=== PATIENT | female | born 1960 | race Caucasian/White ===

== ENCOUNTER 2016-10-31 07:14 | Day surgery (SDC) | payer OTHER ==
--- NOTE | 2016-10-30 14:45 | HP ---
TARA CUNNINGHAM DATE OF SCHEDULED SURGERY: October 31, 2016 PREOPERATIVE DIAGNOSES: 1. Ovarian cyst. 2. Symptomatic rectocele. PROCEDURE PLANNED: 1. Laparoscopy and drainage of the cyst. 2. Rectocele repair. HISTORY: The patient is a 56-year-old 0 woman with a last menstrual period at age 18 when she had a total abdominal hysterectomy. Over the past few months she has been having difficulty getting stool out of her rectum and needs to put her hand in the vagina and push the back wall down to have a bowel movement. She states the stool is soft, no constipation. She denies any pain on a regular basis. She has also had a history of a cyst on the right ovary in the past. We did a followup ultrasound which showed that she has a 3.8 cm simple cyst on the right ovary. Left side is negative. Otherwise normal ultrasound. Patient states that the rectocele is giving her a problem and would like something done about it. PAST MEDICAL HISTORY: 1. History of hyperlipidemia. 2. As a child she had a tetrology of Fallot. 3. History of asthma. 4. Chronic pain. PAST SURGICAL HISTORY: 1. Surgery repair as a child of the tetrology of Fallot. 2. History of hysterectomy at age 18. ALLERGIES: None. MEDICATIONS: 1. Singulair 10 mg at bedtime. 2. Omeprazole. 3. Cetirizine. 4. Gabapentin 300 mg at bedtime. 5. Melatonin at bedtime. 6. Pseudoephedrine as needed. 7. Advil as needed. ALLERGIES: 1. ERYTHROMYCIN CAUSING A BODY RASH. 2. AMOXICILLIN CAUSING A BODY RASH AND RESPIRATORY DIFFICULTY. 3. KEFLEX CAUSING HIVES. 4. CIPRO CAUSING HIVES. 5. HYDROCODONE CAUSING VOMITING. 6. LATEX CAUSING RED BLISTERS. 7. STERISTRIPS CAUSING WELTS. FAMILY HISTORY: Noncontributory. REVIEW OF SYSTEMS: Patient denies fever, chills, constipation, diarrhea, dysuria, hematuria. PHYSICAL EXAMINATION: GENERAL: She is a healthy-appearing woman. VITAL SIGNS: Stable, afebrile. HEENT: Normal. LUNGS: Clear. HEART: Normal S1 and S2. ABDOMEN: Soft, nontender, with no guarding or rebound. PELVIC: External genitalia are normal. Vagina shows a rectocele to the introitus. Uterus and cervix are surgically absent. There are no adnexal masses though she is slightly tender on the right side. IMPRESSION: The impression is a patient with a persistent right ovarian cyst and a symptomatic rectocele. PLAN: Plan is to do a laparoscopy to remove the cyst and a rectocele repair.
[~2016-10-31 07:14] MED LIST: IV START KIT ONE; LACTATED RINGERS 1,000 ML ONE; SULFANILAMIDE 15% CREAM 20 APPLIC/120 G TUBE ONE
[2016-10-31] MEDS ORDERED: CLINDAMYCIN 600 MG PREMIX 50 ML IV ONE (07:27)
[2016-10-31] MEDS ORDERED: CLINDAMYCIN 600 MG PREMIX 50 ML IV PRN (07:30)
[2016-10-31] MEDS ORDERED: GENTAMICIN SULFATE 320 MG in SODIUM CHLORIDE 0.9% 100 ML IV PRN (07:30)
[2016-10-31] MEDS ORDERED: DEXAMETHASONE SOD PHOS 4 MG/1 ML VIAL ONE (07:48)
[2016-10-31] MEDS ORDERED: PROPOFOL 20 ML IV ONE ×2 (07:48→09:35)
[2016-10-31] MEDS ORDERED: ONDANSETRON 4 MG/2ML 2 ML VIAL ONE (07:48)
[2016-10-31] MEDS ORDERED: FENTANYL 5 ML ONE (07:48)
[2016-10-31] MEDS ORDERED: SUCCINYLCHOLINE CHL 20 MG/ML DOSE ONE (07:48)
[2016-10-31] MEDS ORDERED: MIDAZOLAM HCL 5 MG/5 ML VIAL ONE (07:48)
[2016-10-31] MEDS ORDERED: KETOROLAC TROMETHAMINE 30 MG/ML 1 ML VIAL ONE (07:48)
[2016-10-31] MEDS ORDERED: LIDOCAINE 2% (MULTI DOSE) 10 ML VIAL ONE (07:48)
[2016-10-31] MEDS ORDERED: ROCURONIUM BROMIDE 10 MG/ML DOSE IV ONE (07:48)
[2016-10-31] MEDS ORDERED: FAMOTIDINE 10 MG/ML 2ML VIAL ONE (08:00)
[2016-10-31] MEDS ORDERED: DIPHENHYDRAMINE HCL 50 MG/1 ML VIAL ONE (08:00)
[2016-10-31] MEDS ORDERED: SCOPOLAMINE 1.5 MG/72 HR 1 EACH PATCH TD ONE (08:00)
[2016-10-31] MEDS ORDERED: HYDROMORPHONE HCL 1 MG/ML SYRINGE IV PRN ×2 (08:50→10:49)
[2016-10-31] MEDS ORDERED: PROMETHAZINE HCL 25 MG/ML VIAL IM PRN (08:50)
[2016-10-31] MEDS ORDERED: ONDANSETRON 4 MG/2ML 2 ML VIAL IV PRN (08:50)
[2016-10-31] MEDS ORDERED: LACTATED RINGERS 1,000 ML IV SCH (09:00)
[2016-10-31] MEDS ORDERED: ATROPINE SULFATE 1 MG/1 ML VIAL ONE (09:00)
[2016-10-31] MEDS ORDERED: EPHEDRINE SULFATE UD SYR 25 MG 25 MG/5 ML SYRINGE IV ONE (09:25)
--- NOTE | 2016-10-31 10:19 | OP ---
Denisa Trejo DATE: 10/31/2016 PREOPERATIVE DIAGNOSES: 1. Symptomatic rectocele. 2. Symptomatic right ovarian cyst. POSTOPERATIVE DIAGNOSES: 1. Symptomatic rectocele. 2. Symptomatic right ovarian cyst. OPERATION PERFORMED: 1. Laparoscopy with drainage of cyst. 2. Rectocele repair. SURGEON: Yung Conroy M.D. AIR CARGO SPECIALIST: Gabrielle Mayorga PROCEDURE: The patient was taken to the operating room and general anesthesia was administered. She was placed in the dorsolithotomy position and prepped and draped in the usual sterile fashion. A sponge stick was placed into the vagina. Surgeon changed gloves. Subumbilical skin incision with a scalpel. We then attempted to put a Visiport trocar in. The shorter one was too short. We changed to the larger one. We still were not getting through although, I was not feeling any mesh. As we were pushing down the patient became asystolic. We immediately stopped. She was given Atropine and her heart rate returned and her blood pressure remained stable throughout the incident. After waiting we then decided to put a Varess needle in and this was done and a pneumoperitoneum was created without incident. A 5 mm Visiport port was then put in. Exam showed no bleeding. Belly was normal in appearance. A second 5 mm port was put in suprapubically. Using a probe we were able to see the right ovary, I did not see the left ovary, but the right ovary had a 3 cm fluid filled cyst on it, this was brought up and was needle aspirated and the fluid was sent for cytology. Hemostasis was good. Again, I looked throughout the entire abdomen and there was no bleeding and no abnormalities. She did have a number of omental adhesions particularly on the left side which were too thick to take down and have not been bothering her. At that point, we stopped and closed the incisions with interrupted sutures of 3-0 Plain. Attention was then turned to the rectocele. Rectal exam showed that she had a rectocele up about 3 to 4 cm from the introitus. The peritoneal body was incised with scissors and then the posterior wall of the vagina was undermined with scissors and opened in the midline. Using sharp and blunt dissection the rectal tissue and perirectal fascia were dissected away from the vaginal mucosa. Two interrupted sutures of 0 Vicryl were placed to bring the perirectal fascia back together. This reduced and eliminated the rectocele. The excess vaginal mucosa was removed with scissors and then the posterior wall was closed with a running locking suture of 2-0 Vicryl. Hemostasis was good. Rectal exam showed that the cystocele had been reduced. Leigh catheter was inserted with clear urine return and a vaginal pack was inserted. Patient tolerated the procedure well and was taken to the recovery room in stable condition. All sponge, instrument, and needle counts were correct. Estimated blood loss 30 mL. JOB: [id number]
[2016-10-31] MEDS ORDERED: FENTANYL 100 MCG/2 ML VIAL ONE (10:35)
[2016-10-31] MEDS: FENTANYL 100 MCG/2 ML VIAL IV PRN ×2 (10:37→10:51)
[2016-10-31] MEDS ORDERED: MAGNESIUM HYDROXIDE/AL HYDROX 30 ML UDCUP PO PRN (10:49)
[2016-10-31] MEDS ORDERED: MENTHOL/CETYLPYRD 1 EACH LOZENGE PO PRN (10:49)
[2016-10-31] MEDS ORDERED: ACETAMINOPHEN 325 MG TABLET PO PRN (10:49)
[2016-10-31] MEDS ORDERED: ONDANSETRON 4 MG ODT TAB PO PRN (10:49)
[2016-10-31] MEDS ORDERED: MAG HYDROX/AL HYDROX/SIMETH 30 ML UDCUP PO PRN (10:49)
[2016-10-31] MEDS ORDERED: BLISTEX LIPSTICK 1 EACH TP PRN (10:49)
[2016-10-31 11:20] VITALS: BMI 28.8
[2016-10-31] MEDS ORDERED: PUMP TUBING ONE (11:51)
[2016-10-31] MEDS: D5LR 1,000 ML IV SCH ×2 (11:55→20:15)
[2016-10-31] MEDS: DOCUSATE SODIUM 100 MG CAPSULE PO SCH (20:15)
[2016-10-31] MEDS: HYDROMORPHONE HCL 2 MG TABLET PO PRN (20:30)
[2016-10-31] MEDS ORDERED: IV START KIT ONE (22:19)
[2016-10-31] MEDS ORDERED: SODIUM CHLORIDE 0.9% FLUSH 10 ML ONE (22:19)
[2016-11-01] MEDS: HYDROMORPHONE HCL 2 MG TABLET PO PRN ×3 (01:41→09:32)
[2016-11-01] MEDS: D5LR 1,000 ML IV SCH ×2 (05:20→10:50)
[2016-11-01 06:41] LABS: HEMATOCRIT 40.2 % (37.0-47.0); HEMOGLOBIN 13.4 gm/l (12.0-16.0); MEAN CELL VOLUME 87.2 fl (81.0-99.0); MEAN CORPUSCULAR HEMOGLOBIN 29.1 pg (27.0-31.0); MEAN CORPUSCULAR HGB CONC 33.3 g/dl (33.0-37.0); RED CELL DISTRIBUTION WIDTH 12.3 % (11.5-14.5)
[2016-11-01 08:08] VITALS: BP 92/66
[2016-11-01] MEDS: DOCUSATE SODIUM 100 MG CAPSULE PO SCH (08:20)
--- NOTE | 2016-11-01 11:22 | PDOC43 ---
- Subjective Subjective: Reports Pain Tolerable, Reports Tolerating PO Regular - Objective Vital Signs Temperature 99.2 F 11/01/16 08:06 Pulse Rate 75 11/01/16 08:06 Respiratory Rate 17 11/01/16 08:06 Blood Pressure 92/66 11/01/16 08:06 O2 Saturation by Pulse Oximetry 99 11/01/16 08:06 Oxygen Delivery Method Room Air Oxygen Flow Rate 0 Laboratory 11/01/16 06:00 Active Medication Orders Category Date Time Status Acetaminophen [Tylenol] Med 10/31/16 10:49 Active 325 - 650 mg PO Q4H PRN D5lr 1,000 ml Med 10/31/16 10:49 Active IV 125 mls/hr Docusate Sodium [Colace] Med 10/31/16 21:00 Active 100 mg PO BID Hydromorphone HCl [Dilaudid] Med 10/31/16 10:49 Active 1 - 2 mg IV Q2H PRN Hydromorphone [Dilaudid] Med 10/31/16 09:50 Active 2 mg PO Q4H PRN Lip [place] [Blistex] Med 10/31/16 10:49 Active 1 each TP PRN PRN Magnesium Hydroxide/Al Hydrox [Maalox] Med 10/31/16 10:49 Active 30 ml PO Q4H PRN Magnesium/Al Hydrox/Simeth [Maalox Plus] Med 10/31/16 10:49 Active 30 ml PO Q4H PRN Menthol/Cetylpyridinium [Cepacol] Med 10/31/16 10:49 Active 1 each PO PRN PRN Ondansetron ODT [Zofran Odt] Med 10/31/16 10:49 Active 4 - 8 mg PO Q8H PRN Sodium Chloride 0.9% Flush [Normal Saline 10ml Flush] Med 10/31/16 10:49 Active 10 - 50 ml IV PRN PRN Intake and Output 10/30/16 10/31/16 11/01/16 23:59 23:59 23:59 Intake Total 3097 2232 Output Total 6175 6534 Balance 1042 -1068 General: Afebrile Abdomen: Soft Genitourinary: Normal Female Genitalia Psych/Mental Status: Normal Affect (pack removed, dry) - Disposition: Disposition: Anticipate Home Today
--- NOTE | 2016-11-02 10:12 | SURGPATH ---
[facility] [address] [place] [id number] Patient Name: TARA CUNNINGHAM MR#: [id number] : 1960 Gender: F Specimen #: [id number] Collected: 10/31/2016 Received: 11/01/2016 Reported: 11/02/2016 Submitting Phys: ELICIA ROBERTS Copy To Phys: STEF MCKNIGHT Clinical History / Pre-Operative Diagnosis: Specimen Source / Surgical Procedure Performed: Right Ovarian Cyst Fluid Interpretation: RIGHT OVARIAN CYST FLUID: - BENIGN CYST FLUID Electronically Signed Out Maria Luisa Arevalo M.D. Gross Description: 40ml of translucent pale yellow fluid in cytolyt. Prepared: 1 single fixed cytospin. Microscopic Description: A cytospin preparation shows low cellularity with low numbers of macrophages and inflammatory cells. No malignant cells are present. 1: [id number] N83.29
== END 2016-11-01 12:22 | disposition home or self-care (01) ==
LOC: SDC 07:14 → MS 13:39 → SDC 11-01 12:22
PROVIDERS: ATTEND Obstetrics & Gynecology
DX: N83.201 Unspecified ovarian cyst, right side (principal); N81.6 Rectocele; Q21.3 Tetralogy of Fallot; J45.909 Unspecified asthma, uncomplicated; M79.7 Fibromyalgia; G89.29 Other chronic pain
CPT/HCPCS: 85027; 36416; 57250; 49322; A9270 ×9; J0461; J1200; J1170; J3010 ×2; J1580; J1100; J2250; J2405; J7120; J7050; J2001